=== PATIENT | male | born 1970 | race American Indian/Alaskan Native ===

== ENCOUNTER 2023-06-09 14:32 | Emergency (ER) | payer BC ==
[~2023-06-09] VITALS: Ht 177.8 cm; Wt 99.8 kg
[~2023-06-09 14:32] MED LIST: ATORVASTATIN CA40 MG PO; FENOFIBRATE145 MG PO; GABAPENTIN300 MG PO; GLIMEPIRIDE2 MG PO; HYDRALAZINE HCL25 MG PO; LEVEMIR100 UNIT/1 SC; LOSARTAN POTASS25 MG PO; METFORMIN HCL500 MG PO; NIFEDIPINE ER30 M1 PO; TOPROL XL50 MG PO
[2023-06-09 14:43] VITALS: O2SAT 100
[2023-06-09] MEDS ORDERED: BENZONATATE 100 MG CAP PO STA (15:56)
[2023-06-09] MEDS ORDERED: BENZONATATE100 MG PO (16:27)
== END 2023-06-09 16:30 | disposition home or self-care (01) ==
LOC: ER 14:38
DX: R50.9 Fever, unspecified (principal); B34.9 Viral infection, unspecified; R05.9 Cough, unspecified; R11.2 Nausea with vomiting, unspecified; Z11.52 Encounter for screening for COVID-19
CPT/HCPCS: 87400; 99283; U0002